=== PATIENT | female | born 1985 | race Two or more races ===

== ENCOUNTER 2025-07-20 12:59 | Emergency (ER) | payer OTHER ==
[~2025-07-20] VITALS: Ht 154.9 cm; Wt 74.8 kg
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
[2025-07-20] MEDS: HYDROcodone-ACET 5/325MG TAB ONE (17:21)
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
[2025-07-20] MEDS ORDERED: HYDR-4902 PO (18:24)
[2025-07-20] MEDS ORDERED: AUG875T PO (18:24)
[2025-07-20] MEDS: HYDROcodone-ACET 5/325MG TAB PO ONE (18:40)
[2025-07-20 18:51] VITALS: BP 125/86; PULSE 85; RESP 16; TEMP 98.4; O2SAT 99
== END 2025-07-20 18:40 | disposition home or self-care (01) ==
LOC: EEVIPCON 12:59 → ER 12:59 → EDBD 12:59 → ER 18:40
DX: S02.121A Fracture of orbital roof, right side, initial encounter for closed fracture (principal); Y04.0XXA Assault by unarmed brawl or fight, initial encounter; Y93.89 Activity, other specified; Y92.89 Other specified places as the place of occurrence of the external cause; Y99.8 Other external cause status
CPT/HCPCS: 70486